=== PATIENT | male | born 1995 | race Caucasian/White ===

== ENCOUNTER 2017-06-10 21:30 | Emergency (ER) | payer OTHER ==
[~2017-06-10] VITALS: Ht 177.8 cm; Wt 77.9 kg
[2017-06-10] MEDS ORDERED: PERCOCET 5MG/325MG TAB PO ONE (22:15)
[2017-06-10] MEDS ORDERED: methylPREDNISolone INJ 40 MG/1 ML VIAL (J2920) IM ONE (22:15)
[2017-06-10] MEDS ORDERED: KETOROLAC 60 MG/2 ML VIAL (J1885) IM ONE (22:15)
[2017-06-10] MEDS ORDERED: CYCL5TAB PO (22:29)
[2017-06-10] MEDS ORDERED: IBUP-1022 PO (22:30)
[2017-06-10 22:55] VITALS: BP 128/70
[2017-09-29] MEDS ORDERED: MINO0.1C PO (20:49)
[2017-09-29] MEDS ORDERED: [UNRECOGNIZED DRUG - OTHER] (20:49)
[2017-09-29] MEDS ORDERED: VIST25CA PO (23:16)
[2017-09-29] MEDS ORDERED: CYCL10TA PO (23:16)
== END 2017-06-10 22:57 | disposition home or self-care (01) ==
LOC: M ED 21:30
DX: M54.9 Dorsalgia, unspecified (principal)
CPT/HCPCS: 96372; 99282; J1885; J2920